=== PATIENT | female | born 1945 | race African-American/Black ===

== ENCOUNTER 2016-08-29 17:12 | Inpatient (IN) | payer MEDICARE, BC ==
[~2016-08-29] VITALS: Ht 167.6 cm; Wt 101.6 kg
[~2016-08-29 17:12] MED LIST: AMLO1TAB15; AMYL1CAP61; ASPI-1079; ATOR10TA; CHOL200041; COR12; ERGO400T7; FURO20TA4; HYDR-3162; INSLAN; INSU100C6; SPIR25TA4; WARF5TAB73
[2016-08-29] MEDS ORDERED: SODIUM CHLORIDE 0.9% 500 ML IV ONE (17:32)
[2016-08-29] MEDS ORDERED: DEXTROSE 50% WATER 50ML SYRINGE IV ONE ×2 (18:45→18:47)
[2016-08-29 19:01] LABS: BASOPHILS % 0.5 % (0.0-2.0); DIFFERENTIAL COMMENT 0; EOSINOPHILS % 1.1 % (0.0-5.0); HEMATOCRIT. 33.7 % (36.0-48.0); HEMOGLOBIN. 10.7 g/dL (12.0-16.0); LYMPHOCYTES % 9.7 % (20.0-50.0); MEAN CORPUSCULAR HEMOGLOBIN 31.9 pg (28.0-32.0); MEAN CORPUSCULAR HGB CONC 31.7 g/dL (31.0-37.0); MEAN CORPUSCULAR VOLUME 100.7 fL (81.0-99.0); MONOCYTES % 12.5 % (2.0-8.0); NEUTROPHILS % 76.2 % (40.0-76.0); PLATELET 155 x1000/uL (130-400); RED BLOOD CELL COUNT 3.35 mill/uL (4.2-5.4); RED CELL DISTRIBUTION WIDTH 20.2 % (11.6-14.6); WHITE BLOOD COUNT 7.3 x1000/uL (4.5-11.0)
[2016-08-29 19:12] LABS: AMMONIA < 10 uMol/L (<32)
[2016-08-29 19:18] LABS: PARTIAL THROMBOPLASTIN TIME 70.4 sec (24.0-34.0); PROTHROMBIN TIME 50.9 sec
[2016-08-29 19:20] LABS: ALANINE AMINOTRANSFERASE 18 IU/L (13-61); ALBUMIN 2.3 g/dL (3.4-5.0); ANION GAP 12; CALCIUM 8.1 mg/dL (8.5-10.1); CARBON DIOXIDE 26 mEq/L (21-32); CHLORIDE 112 mEq/L (98-107); CREATINE KINASE 100 IU/L (26-192); INDEX HEMOLYSI 1 (1-3); INDEX ICTERIC 1 (1-4); INDEX LIPEMIC 1 (1-3); INR 4.9; LIPASE 29 IU/L (73-393); MAGNESIUM 2.2 mg/dL (1.8-2.4); NT PRO B-TYPE NATRIURETIC PEP 4474 pg/mL (5-125); TROPONIN I < 0.02 ng/mL (0.00-0.04); UREA NITROGEN BLOOD 14 mg/dL (7-21); eGFR 36 mL/min (>60)
[2016-08-29] MEDS ORDERED: CARV25TA47 PO (20:54)
[2016-08-29] MEDS ORDERED: PREG50CA PO (20:54)
[2016-08-29] MEDS ORDERED: DOCU-150 PO (21:07)
[2016-08-29] MEDS ORDERED: GABA-531 PO (21:07)
[2016-08-29] MEDS ORDERED: CALC0.253 PO (21:07)
[2016-08-29] MEDS ORDERED: TERA5CAP4 PO (21:07)
[2016-08-29] MEDS ORDERED: AMLO2.5T45 PO (21:07)
[2016-08-29] MEDS ORDERED: ONDA4TAB51 PO (21:07)
[2016-08-29] MEDS ORDERED: VALA500T55 PO (21:07)
[2016-08-29] MEDS ORDERED: NEPVIT PO (21:07)
[2016-08-29] MEDS ORDERED: OXYC5CAP12 PO (21:09)
[2016-08-29] MEDS ORDERED: LORAZEPAM 2MG/ML CPJ IV PRN (21:45)
[2016-08-29] MEDS ORDERED: DIPHENHYDRAMINE 50MG/ML VIAL IV PRN (21:45)
[2016-08-29] MEDS ORDERED: DOCUSATE SODIUM 100MG CAPSULE PO PRN (21:45)
[2016-08-29] MEDS ORDERED: ONDANSETRON HCL 4MG/2ML VIAL IV PRN (21:45)
[2016-08-29] MEDS ORDERED: MAGNESIUM/ALUMINUM HYDROXIDE/SIMETHICONE 30ML UDC PO PRN (21:45)
[2016-08-29] MEDS ORDERED: IPRATROPIUM/ALBUTEROL 0.5-3(2.5)MG/3ML NEB INH PRN (21:45)
[2016-08-29] MEDS ORDERED: HYDROMORPHONE HCL/PF 2MG/ML CPJ IV PRN (22:00)
[2016-08-29] MEDS ORDERED: NA PHOS,M-B/NA PHOS,DI-BA ENEMA 118ML PR PRN (22:00)
[2016-08-29] MEDS: CLONIDINE 0.1MG TABLET PO PRN (23:01)
[2016-08-30] VITALS (14 sets, daily range): BP systolic 131–170; BP diastolic 52–78
[2016-08-30] MEDS: HYDROCODONE/ACETAMINOPHEN 5/325MG TABLET PO PRN ×2 (01:00→05:04)
[2016-08-30] MEDS ORDERED: DEXT 5%/0.45% NACL KCL 10MEQ/L 1,000 ML IV SCH (02:30)
[2016-08-30] MEDS: DEXT 5%/0.45% NACL KCL 10MEQ/L 1,000 ML IV SCH ×4 (02:54→21:00)
[2016-08-30] MEDS ORDERED: DEXTROSE 50% WATER 50ML SYRINGE IV PRN (03:15)
[2016-08-30 03:38] LABS: CALCIUM 7.4 mg/dL (8.5-10.1); TROPONIN I 0.18 ng/mL (0.00-0.04)
[2016-08-30 06:49] LABS: HEMATOCRIT. 26.2 % (36.0-48.0); HEMOGLOBIN. 8.6 g/dL (12.0-16.0); MEAN CORPUSCULAR HEMOGLOBIN 32.5 pg (28.0-32.0); MEAN CORPUSCULAR HGB CONC 32.7 g/dL (31.0-37.0); MEAN CORPUSCULAR VOLUME 99.6 fL (81.0-99.0); MEAN PLATELET VOLUME 10.2 fl (7.4-10.4); PLATELET 146 x1000/uL (130-400); RED BLOOD CELL COUNT 2.63 mill/uL (4.2-5.4); RED CELL DISTRIBUTION WIDTH 20.2 % (11.6-14.6); WHITE BLOOD COUNT 3.4 x1000/uL (4.5-11.0)
[2016-08-30 07:00] LABS: DIFFERENTIAL COMMENT 1
[2016-08-30] MEDS: BLOOD SUGAR DIAGNOSTIC STRIP TEST SCH ×4 (07:30→21:00)
[2016-08-30 07:45] LABS: ALANINE AMINOTRANSFERASE 16 IU/L (13-61); ALBUMIN 1.9 g/dL (3.4-5.0); ANION GAP 9; CALCIUM 7.5 mg/dL (8.5-10.1); CARBON DIOXIDE 26 mEq/L (21-32); CHLORIDE 113 mEq/L (98-107); HDL CHOLESTEROL 49 mg/dL (40-59); INDEX HEMOLYSI 1 (1-3); INDEX ICTERIC 1 (1-4); INDEX LIPEMIC 1 (1-3); LDL CHOLESTEROL 46 mg/dL (5-100); TRIGLYCERIDE 55 mg/dL (0-150); UREA NITROGEN BLOOD 14 mg/dL (7-21); eGFR 39 mL/min (>60)
[2016-08-30] MEDS: INSULIN LISPRO 100 UNITS/ML SUBCUT SCH ×4 (08:00→20:59)
[2016-08-30 08:11] LABS: TROPONIN I 0.49 ng/mL (0.00-0.04)
[2016-08-30] MEDS ORDERED: CREON 24000 UNIT PO PRN (08:30)
[2016-08-30] MEDS: AMLODIPINE 2.5MG TABLET PO SCH (09:00)
[2016-08-30] MEDS ORDERED: PREGABALIN 50 MG CAPSULE PO SCH (09:00)
[2016-08-30] MEDS: BENAZEPRIL 10MG TABLET PO SCH ×2 (09:00→21:00)
[2016-08-30] MEDS ORDERED: VALACYCLOVIR HCL 500MG TABLET PO SCH (09:00)
[2016-08-30] MEDS ORDERED: ASPIRIN 81MG TABLET PO SCH (09:00)
[2016-08-30] MEDS: SPIRONOLACTONE 25MG TABLET PO SCH (09:00)
[2016-08-30] MEDS ORDERED: CARVEDILOL 25MG TABLET PO SCH (09:00)
[2016-08-30] MEDS ORDERED: ENOXAPARIN 40MG/0.4ML SYR SUBCUT SCH (09:00)
[2016-08-30] MEDS ORDERED: GABAPENTIN 300MG CAPSULE PO SCH (09:00)
[2016-08-30] MEDS: FUROSEMIDE 20MG TABLET PO SCH (09:00)
[2016-08-30] MEDS ORDERED: WARFARIN SODIUM 5MG TABLET PO SCH (09:00)
[2016-08-30 09:03] LABS: ANISOCYTOSIS 2+
[2016-08-30 09:04] LABS: PLATELET ESTIMATE NORMAL
[2016-08-30] MEDS: CREON 24000 UNIT PO SCH ×3 (09:22→18:14)
[2016-08-30] MEDS: DOCUSATE SODIUM 100MG CAPSULE PO SCH (09:48)
[2016-08-30] MEDS: FOLIC ACID/VITAMIN B COMP W-C TABLET PO SCH (09:49)
[2016-08-30] MEDS: PREGABALIN 50 MG CAPSULE PO SCH ×3 (09:49→18:03)
[2016-08-30] MEDS: TERAZOSIN HCL 5MG CAPSULE PO SCH (09:49)
[2016-08-30] MEDS: CARVEDILOL 25MG TABLET PO SCH ×2 (09:49→18:03)
[2016-08-30] MEDS: CALCITRIOL 0.25MCG CAPSULE PO SCH (09:49)
[2016-08-30 10:48] LABS: PROTHROMBIN TIME 50.8 sec
[2016-08-30 11:53] LABS: INR 4.8
[2016-08-30] MEDS: CLONIDINE 0.1MG TABLET PO PRN (14:10)
[2016-08-30] MEDS: ATORVASTATIN CALCIUM 10MG TABLET PO SCH (18:04)
[2016-08-31] VITALS (12 sets, daily range): BP systolic 120–177; BP diastolic 56–86
[2016-08-31] MEDS: CREON 24000 UNIT PO SCH ×4 (05:22→18:47)
[2016-08-31 06:34] LABS: PROTHROMBIN TIME 51.4 sec
[2016-08-31 06:38] LABS: HEMATOCRIT. 27.8 % (36.0-48.0); HEMOGLOBIN. 8.8 g/dL (12.0-16.0); MEAN CORPUSCULAR HEMOGLOBIN 31.6 pg (28.0-32.0); MEAN CORPUSCULAR HGB CONC 31.6 g/dL (31.0-37.0); MEAN CORPUSCULAR VOLUME 99.8 fL (81.0-99.0); MEAN PLATELET VOLUME 10.3 fl (7.4-10.4); PLATELET 159 x1000/uL (130-400); RED BLOOD CELL COUNT 2.79 mill/uL (4.2-5.4); RED CELL DISTRIBUTION WIDTH 20.1 % (11.6-14.6); WHITE BLOOD COUNT 4.5 x1000/uL (4.5-11.0)
[2016-08-31 07:05] LABS: DIFFERENTIAL COMMENT 1
[2016-08-31] MEDS: BLOOD SUGAR DIAGNOSTIC STRIP TEST SCH ×4 (07:30→21:39)
[2016-08-31 07:53] LABS: CALCIUM 7.7 mg/dL (8.5-10.1)
[2016-08-31] MEDS: INSULIN LISPRO 100 UNITS/ML SUBCUT SCH ×4 (08:00→21:44)
[2016-08-31] MEDS: DEXT 5%/0.45% NACL KCL 10MEQ/L 1,000 ML IV SCH ×3 (08:00→18:00)
[2016-08-31 08:09] LABS: INR 4.9
[2016-08-31] MEDS: PREGABALIN 50 MG CAPSULE PO SCH ×3 (08:44→18:48)
[2016-08-31] MEDS: AMLODIPINE 2.5MG TABLET PO SCH (08:44)
[2016-08-31] MEDS: TERAZOSIN HCL 5MG CAPSULE PO SCH (08:45)
[2016-08-31] MEDS: CARVEDILOL 25MG TABLET PO SCH ×2 (08:45→18:47)
[2016-08-31] MEDS: SPIRONOLACTONE 25MG TABLET PO SCH (08:46)
[2016-08-31] MEDS: FOLIC ACID/VITAMIN B COMP W-C TABLET PO SCH (08:46)
[2016-08-31] MEDS: DOCUSATE SODIUM 100MG CAPSULE PO SCH (08:46)
[2016-08-31] MEDS: FUROSEMIDE 20MG TABLET PO SCH (08:47)
[2016-08-31] MEDS: BENAZEPRIL 10MG TABLET PO SCH ×2 (08:48→20:04)
[2016-08-31] MEDS: CALCITRIOL 0.25MCG CAPSULE PO SCH (08:52)
[2016-08-31 09:52] LABS: ANISOCYTOSIS 1+; PLATELET ESTIMATE NORMAL
[2016-08-31] MEDS: CLONIDINE 0.1MG TABLET PO PRN (13:09)
[2016-08-31] MEDS: ATORVASTATIN CALCIUM 10MG TABLET PO SCH (20:04)
[2016-09-01] VITALS (24 sets, daily range): BP systolic 143–219; BP diastolic 49–144
[2016-09-01] MEDS: GUAIFENESIN 200MG/10ML SUGAR FREE UDC PO PRN ×4 (01:19→22:01)
[2016-09-01] MEDS: CLONIDINE 0.1MG TABLET PO PRN ×2 (02:48→17:02)
[2016-09-01] MEDS: DEXT 5%/0.45% NACL KCL 10MEQ/L 1,000 ML IV SCH ×2 (05:09→13:27)
[2016-09-01 06:35] LABS: BASOPHILS % 0.4 % (0.0-2.0); EOSINOPHILS % 2.5 % (0.0-5.0); HEMATOCRIT. 27.5 % (36.0-48.0); LYMPHOCYTES % 12.1 % (20.0-50.0); MEAN CORPUSCULAR HEMOGLOBIN 32.7 pg (28.0-32.0); MEAN CORPUSCULAR HGB CONC 32.7 g/dL (31.0-37.0); MEAN PLATELET VOLUME 10.4 fl (7.4-10.4); MONOCYTES % 13.1 % (2.0-8.0); NEUTROPHILS % 71.9 % (40.0-76.0); PLATELET 150 x1000/uL (130-400); RED BLOOD CELL COUNT 2.75 mill/uL (4.2-5.4); RED CELL DISTRIBUTION WIDTH 19.9 % (11.6-14.6); WHITE BLOOD COUNT 6.3 x1000/uL (4.5-11.0)
[2016-09-01 07:21] LABS: INR 3.6; PROTHROMBIN TIME 38.2 sec
[2016-09-01] MEDS: BLOOD SUGAR DIAGNOSTIC STRIP TEST SCH ×4 (08:08→20:30)
[2016-09-01 08:23] LABS: CALCIUM 7.7 mg/dL (8.5-10.1)
[2016-09-01] MEDS: CREON 24000 UNIT PO SCH ×3 (08:29→17:19)
[2016-09-01] MEDS: DOCUSATE SODIUM 100MG CAPSULE PO SCH (08:31)
[2016-09-01] MEDS: PREGABALIN 50 MG CAPSULE PO SCH ×3 (08:32→17:02)
[2016-09-01] MEDS: SPIRONOLACTONE 25MG TABLET PO SCH (08:32)
[2016-09-01] MEDS: FOLIC ACID/VITAMIN B COMP W-C TABLET PO SCH (08:33)
[2016-09-01] MEDS: TERAZOSIN HCL 5MG CAPSULE PO SCH (08:34)
[2016-09-01] MEDS: CALCITRIOL 0.25MCG CAPSULE PO SCH (08:34)
[2016-09-01] MEDS: AMLODIPINE 2.5MG TABLET PO SCH (08:36)
[2016-09-01] MEDS: BENAZEPRIL 10MG TABLET PO SCH ×2 (08:36→20:23)
[2016-09-01] MEDS: FUROSEMIDE 20MG TABLET PO SCH (08:37)
[2016-09-01] MEDS: CARVEDILOL 25MG TABLET PO SCH ×2 (08:37→17:03)
[2016-09-01] MEDS: INSULIN LISPRO 100 UNITS/ML SUBCUT SCH ×4 (08:44→20:34)
[2016-09-01] MEDS: ATORVASTATIN CALCIUM 10MG TABLET PO SCH (17:19)
[2016-09-01] MEDS ORDERED: PROMETHAZINE/DEXTROMETHORPHAN 6.25-15MG/5ML BOTTLE 120ML PO PRN (22:00)
[2016-09-02] VITALS (25 sets, daily range): BP systolic 125–204; BP diastolic 48–115
[2016-09-02] MEDS: DEXT 5%/0.45% NACL KCL 10MEQ/L 1,000 ML IV SCH ×3 (07:18→20:40)
[2016-09-02] MEDS: BLOOD SUGAR DIAGNOSTIC STRIP TEST SCH ×4 (07:37→20:40)
[2016-09-02 07:52] LABS: INR 2.1; PROTHROMBIN TIME 22.2 sec
[2016-09-02] MEDS: CALCITRIOL 0.25MCG CAPSULE PO SCH (08:12)
[2016-09-02] MEDS: CREON 24000 UNIT PO SCH ×3 (08:12→18:03)
[2016-09-02] MEDS: SPIRONOLACTONE 25MG TABLET PO SCH (08:12)
[2016-09-02] MEDS: DOCUSATE SODIUM 100MG CAPSULE PO SCH (08:13)
[2016-09-02] MEDS: BENAZEPRIL 10MG TABLET PO SCH ×2 (08:13→20:40)
[2016-09-02] MEDS: CARVEDILOL 25MG TABLET PO SCH ×2 (08:13→18:03)
[2016-09-02] MEDS: AMLODIPINE 2.5MG TABLET PO SCH (08:13)
[2016-09-02] MEDS: TERAZOSIN HCL 5MG CAPSULE PO SCH (08:13)
[2016-09-02] MEDS: FUROSEMIDE 20MG TABLET PO SCH (08:13)
[2016-09-02] MEDS: PREGABALIN 50 MG CAPSULE PO SCH ×3 (08:13→18:03)
[2016-09-02] MEDS: FOLIC ACID/VITAMIN B COMP W-C TABLET PO SCH (08:13)
[2016-09-02] MEDS: INSULIN LISPRO 100 UNITS/ML SUBCUT SCH ×4 (08:17→21:01)
[2016-09-02] MEDS: CLONIDINE 0.3MG TABLET PO PRN (14:07)
[2016-09-02] MEDS ORDERED: LACTULOSE 20G/30ML UDC PO NR (14:15)
[2016-09-02] MEDS ORDERED: WARFARIN SODIUM 4MG TABLET PO NR (18:00)
[2016-09-02] MEDS: ATORVASTATIN CALCIUM 10MG TABLET PO SCH (18:03)
[2016-09-02] MEDS: HYDROCODONE/ACETAMINOPHEN 5/325MG TABLET PO PRN (18:20)
[2016-09-03] VITALS (34 sets, daily range): BP systolic 115–174; BP diastolic 52–97
[2016-09-03] MEDS ORDERED: SIMETHICONE 80MG TABLET CHEW PO ONE (01:15)
[2016-09-03] MEDS: POTASSIUM CHLORIDE INJ 10 MEQ in SODIUM CHLORIDE 0.45% 1,000 ML IV SCH ×3 (02:36→21:41)
[2016-09-03 06:50] LABS: CALCIUM 7.9 mg/dL (8.5-10.1)
[2016-09-03] MEDS: BLOOD SUGAR DIAGNOSTIC STRIP TEST SCH ×4 (07:32→20:32)
[2016-09-03] MEDS: CREON 24000 UNIT PO SCH ×4 (08:24→18:28)
[2016-09-03] MEDS: CALCITRIOL 0.25MCG CAPSULE PO SCH (08:25)
[2016-09-03] MEDS: SPIRONOLACTONE 25MG TABLET PO SCH (08:25)
[2016-09-03] MEDS: SIMETHICONE 80MG TABLET CHEW PO SCH ×3 (08:25→21:37)
[2016-09-03] MEDS: AMLODIPINE 2.5MG TABLET PO SCH (08:25)
[2016-09-03] MEDS: TERAZOSIN HCL 5MG CAPSULE PO SCH (08:25)
[2016-09-03] MEDS: DOCUSATE SODIUM 100MG CAPSULE PO SCH (08:25)
[2016-09-03] MEDS: FOLIC ACID/VITAMIN B COMP W-C TABLET PO SCH (08:26)
[2016-09-03] MEDS: CARVEDILOL 25MG TABLET PO SCH ×2 (08:26→17:08)
[2016-09-03] MEDS: FUROSEMIDE 20MG TABLET PO SCH (08:26)
[2016-09-03] MEDS: BENAZEPRIL 10MG TABLET PO SCH ×2 (08:26→20:26)
[2016-09-03] MEDS: PREGABALIN 50 MG CAPSULE PO SCH ×3 (08:26→17:03)
[2016-09-03] MEDS: INSULIN LISPRO 100 UNITS/ML SUBCUT SCH ×4 (08:27→20:38)
[2016-09-03 09:01] LABS: INR 1.6; PROTHROMBIN TIME 17.2 sec
[2016-09-03] MEDS ORDERED: LACTULOSE 20G/30ML UDC PO NR (10:15)
[2016-09-03] MEDS: ACETAMINOPHEN 325MG TABLET PO PRN (17:03)
[2016-09-03] MEDS ORDERED: WARFARIN SODIUM 4MG TABLET PO NR (18:00)
[2016-09-03] MEDS: ATORVASTATIN CALCIUM 10MG TABLET PO SCH (18:27)
[2016-09-04] VITALS (13 sets, daily range): BP systolic 122–182; BP diastolic 44–88
[2016-09-04] MEDS: CLONIDINE 0.3MG TABLET PO PRN ×2 (04:04→20:44)
[2016-09-04] MEDS: SIMETHICONE 80MG TABLET CHEW PO SCH ×3 (05:50→21:11)
[2016-09-04 06:39] LABS: INR 1.5
[2016-09-04] MEDS: INSULIN LISPRO 100 UNITS/ML SUBCUT SCH ×4 (08:00→20:42)
[2016-09-04] MEDS: BLOOD SUGAR DIAGNOSTIC STRIP TEST SCH ×4 (08:17→20:34)
[2016-09-04] MEDS: CREON 24000 UNIT PO SCH ×3 (08:43→17:43)
[2016-09-04] MEDS: FOLIC ACID/VITAMIN B COMP W-C TABLET PO SCH (08:46)
[2016-09-04] MEDS: SPIRONOLACTONE 25MG TABLET PO SCH (08:46)
[2016-09-04] MEDS: DOCUSATE SODIUM 100MG CAPSULE PO SCH (08:47)
[2016-09-04] MEDS: TERAZOSIN HCL 5MG CAPSULE PO SCH (08:47)
[2016-09-04] MEDS: FUROSEMIDE 20MG TABLET PO SCH (08:47)
[2016-09-04] MEDS: PREGABALIN 50 MG CAPSULE PO SCH ×3 (08:47→17:43)
[2016-09-04] MEDS: CALCITRIOL 0.25MCG CAPSULE PO SCH (08:48)
[2016-09-04] MEDS: BENAZEPRIL 10MG TABLET PO SCH ×2 (08:48→20:43)
[2016-09-04] MEDS: CARVEDILOL 25MG TABLET PO SCH ×2 (08:48→17:00)
[2016-09-04] MEDS: AMLODIPINE 2.5MG TABLET PO SCH (08:48)
[2016-09-04] MEDS: ACETAMINOPHEN 325MG TABLET PO PRN (10:17)
[2016-09-04] MEDS: POTASSIUM CHLORIDE INJ 10 MEQ in SODIUM CHLORIDE 0.45% 1,000 ML IV SCH (13:42)
[2016-09-04] MEDS ORDERED: OXYCODONE HCL 5MG TABLET PO PRN (14:00)
[2016-09-04] MEDS: ATORVASTATIN CALCIUM 10MG TABLET PO SCH (17:43)
[2016-09-04] MEDS ORDERED: WARFARIN SODIUM 4MG TABLET PO NR (18:00)
[2016-09-05] VITALS: BP 162/69
[2016-09-05 02:00] VITALS: BP 160/60
== END 2016-09-05 02:10 | DRG 637 ==
LOC: ER 17:13 → 5EST 20:03
PROVIDERS: ADMIT Internal Medicine; ATTEND Internal Medicine
DX: E11.649 Type 2 diabetes mellitus with hypoglycemia without coma (principal); G93.41 Metabolic encephalopathy; E46 Unspecified protein-calorie malnutrition; E87.0 Hyperosmolality and hypernatremia; I13.0 Hypertensive heart and chronic kidney disease with heart failure and stage 1 through stage 4 chronic kidney disease, or unspecified chronic kidney disease; N17.0 Acute kidney failure with tubular necrosis; E11.22 Type 2 diabetes mellitus with diabetic chronic kidney disease; T38.3X5A Adverse effect of insulin and oral hypoglycemic [antidiabetic] drugs, initial encounter; E11.65 Type 2 diabetes mellitus with hyperglycemia; I25.10 Atherosclerotic heart disease of native coronary artery without angina pectoris; I49.5 Sick sinus syndrome; I50.9 Heart failure, unspecified; G90.8 Other disorders of autonomic nervous system; E87.8 Other disorders of electrolyte and fluid balance, not elsewhere classified; J44.9 Chronic obstructive pulmonary disease, unspecified; K59.00 Constipation, unspecified; N18.9 Chronic kidney disease, unspecified; Z79.4 Long term (current) use of insulin; Z85.07 Personal history of malignant neoplasm of pancreas; Z92.21 Personal history of antineoplastic chemotherapy; Z95.0 Presence of cardiac pacemaker; Z95.5 Presence of coronary angioplasty implant and graft; Z88.1 Allergy status to other antibiotic agents; Z88.8 Allergy status to other drugs, medicaments and biological substances; Z68.36 Body mass index [BMI] 36.0-36.9, adult; Z86.73 Personal history of transient ischemic attack (TIA), and cerebral infarction without residual deficits
CPT/HCPCS: 36415; 70450; 71010; 76770; 80048; 80053; 80061; 82140; 82550; 82962; 83605; 83690; 83735; 83880; 84443; 84484; 85025; 85610; 85730; 87040; 93005; 97110; 97116; 97162; 97166; 97530; 97535; 99291; A6261; C1893; J1815; J3480; J7040

== ENCOUNTER 2016-12-08 19:32 | Emergency (ER) | payer MEDICARE, BC ==
[~2016-12-08] VITALS: Ht 162.6 cm; Wt 86.0 kg
[~2016-12-08 19:32] MED LIST changes: +AMLO2.5T45 PO; +CALC0.253 PO; +CARV25TA47 PO; +DOCU-150 PO; -INSU100C6; +NEPVIT PO; +ONDA4TAB51 PO; +OXYC5CAP12 PO; +PREG50CA PO; -SPIR25TA4; +TERA5CAP4 PO; +VALA500T55 PO; -WARF5TAB73
[2016-12-08 20:29] LABS: BASOPHILS % 0.7 % (0.0-2.0); EOSINOPHILS % 1.7 % (0.0-5.0); HEMATOCRIT. 33.5 % (36.0-48.0); LYMPHOCYTES % 14.1 % (20.0-50.0); MEAN CORPUSCULAR HEMOGLOBIN 30.7 pg (28.0-32.0); MEAN CORPUSCULAR VOLUME 93.6 fL (81.0-99.0); MEAN PLATELET VOLUME 10.2 fl (7.4-10.4); MONOCYTES % 11.6 % (2.0-8.0); NEUTROPHILS % 71.9 % (40.0-76.0); PLATELET 119 x1000/uL (130-400); RED BLOOD CELL COUNT 3.58 mill/uL (4.2-5.4); RED CELL DISTRIBUTION WIDTH 18.2 % (11.6-14.6)
[2016-12-08 20:43] LABS: CHLORIDE 109 mEq/L (98-107)
[2016-12-08 20:49] LABS: CARBON DIOXIDE 27 mEq/L (21-32)
[2016-12-09] MEDS ORDERED: AMLODIPINE 5MG TABLET PO ONE (01:30)
[2016-12-09 03:13] VITALS: BP 155/98
== END 2016-12-09 03:48 | disposition home or self-care (01) ==
LOC: ER 19:48
DX: E11.649 Type 2 diabetes mellitus with hypoglycemia without coma (principal); E78.00 Pure hypercholesterolemia, unspecified; I42.9 Cardiomyopathy, unspecified; I10 Essential (primary) hypertension; Z79.82 Long term (current) use of aspirin; Z79.4 Long term (current) use of insulin; Z88.0 Allergy status to penicillin; Z88.6 Allergy status to analgesic agent; Z88.8 Allergy status to other drugs, medicaments and biological substances; Z99.2 Dependence on renal dialysis
CPT/HCPCS: 36415; 80053; 82962; 85025; 93005; 99285